=== PATIENT | female | born 1995 | race African-American/Black ===

== ENCOUNTER 2017-02-18 16:43 | Emergency (ER) | payer MEDICAID ==
[~2017-02-18] VITALS: Ht 172.7 cm; Wt 69.1 kg
[~2017-02-18 16:43] MED LIST: PRENATAL1 TA1 PO; TYLENOL PM EXTR1 TA1 PO
[2017-02-18 16:47] VITALS: BP 104/76; PULSE 74; TEMP 98.1
[2017-02-18] MEDS ORDERED: NORCO 325 MG-51 TAB PO (17:19)
== END 2017-02-18 17:37 | disposition home or self-care (01) ==
LOC: COL.ER 16:43
DX: R59.0 Localized enlarged lymph nodes (principal)

== ENCOUNTER 2017-05-18 15:21 | Emergency (ER) | payer MEDICAID ==
[~2017-05-18] VITALS: Ht 172.7 cm; Wt 72.7 kg
[~2017-05-18 15:21] MED LIST changes: +NORCO 325 MG-51 TAB PO
[2017-05-18 15:24] VITALS: BP 102/52; PULSE 78; TEMP 98
[2017-05-18] MEDS ORDERED: NORCO 325 MG-51 TAB PO (15:32)
[2017-05-18] MEDS ORDERED: PEN-VEE K500 MG PO (15:32)
== END 2017-05-18 15:35 | disposition home or self-care (01) ==
LOC: COL.ER 15:21
DX: K08.89 Other specified disorders of teeth and supporting structures (principal); J45.909 Unspecified asthma, uncomplicated